=== PATIENT | female | born 1985 | race Caucasian/White ===

== ENCOUNTER 2017-05-12 09:44 | Emergency (ER) | payer SELFPAY ==
[~2017-05-12] VITALS: Ht 170.2 cm; Wt 85.9 kg
[~2017-05-12 09:44] MED LIST: CALNTAB PO; CLIN150C14 PO; PERI0.126 SWISH-SPIT
[2017-05-12 09:50] VITALS: BP 101/61; PULSE 83; RESP 16; TEMP 98.1
[2017-05-12] MEDS ORDERED: CLIN300C5 PO (10:18)
--- NOTE | 2017-05-12 10:18 | PD ---
HPI Chief Complaint: Bite or Sting Time Seen by Provider: 10:04 Travel History International Travel<30 days: No Contact w/Intl Traveler<30days: No Traveled to known affect area: No History of Present Illness HPI 31-year-old female here for evaluation of dog bite to the right index her prior to arrival. She reports the dog was startled by thunder causing it bite her in the hand. She reports normal sensation and full range of motion of the finger. She has 2 lacerations/puncture wounds to the digit. She reports pain within the finger which is nonradiating and constant. No alleviating factors. [facility] Past Medical History Medical History: Denies Significant Hx Influenza Vaccination: Yes ?: Not LMP: 05/07/17 Social History Alcohol Use: No Tobacco Use: Yes (1 PPD) Substance Use: No Allergies-Medications (Allergen,Severity, Reaction): Coded Allergies: amoxicillin (Unverified Allergy, Severe, Seizures, 05/12/17) penicillin G (Unverified Allergy, Severe, swelling of throat, 05/12/17) Reported Meds & Prescriptions Reported Meds & Active Scripts Active Peridex Liq (Chlorhexidine Gluconate (Mouth) Liq) 0.12% Soln 15 Ml SWISH-SPIT BID Clindamycin (Clindamycin HCl) 150 Mg Cap 300 Mg PO Q8HR 10 Days Review of Systems Except as stated in HPI: all other systems reviewed are Neg Physical Exam Narrative GENERAL: Well-nourished, well-developed patient. SKIN: Focused skin assessment warm/dry. 2 lacerations to right index finger volar aspect. Wound #1 measures 0.5 cm. Wound #2 measures 0.75 CM. Neurovascular or tendon injury identified. Patient is able to fully flex and extend the digit against resistance. Brisk cap refill. Reported mild paresthesia but is able to differentiate sharp and all sensation. CARDIOVASCULAR: Regular rate and rhythm without murmurs, gallops, or rubs. RESPIRATORY: Breath sounds equal bilaterally. No accessory muscle use. GASTROINTESTINAL: Abdomen soft, non-tender, nondistended. MUSCULOSKELETAL: No cyanosis, or edema. Right index finger:2 lacerations to right index finger volar aspect. Wound #1 measures 0.5 cm. Wound #2 measures 0.75 CM. Neurovascular or tendon injury identified. Patient is able to fully flex and extend the digit against resistance. Brisk cap refill. Reported mild paresthesia but is able to differentiate sharp and all sensation. Data Data Last Documented VS Vital Signs Date Time Temp Pulse Resp B/P (MAP) Pulse Ox O2 Delivery O2 Flow Rate FiO2 05/12/17 09:50 98.1 83 16 101/61 (74) [facility] Medical Decision Making Medical Screen Exam Complete: Yes Emergency Medical Condition: Yes Differential Diagnosis Puncture wound, animal bite, laceration to finger Narrative Course 31-year-old female here with 2 puncture wounds/lacerations to the right index finger caused by dogbite prior to arrival. Extremities neurovascular intact. Both wounds are under 1 cm. Neurovascular or tendon injury identified. The wounds were extensively irrigated. Sterile dressings and splint applied. Patient on antibiotics and instructed to follow-up in 2 days for recheck. Patient verbalizes understanding and agrees to plan Diagnosis Primary Impression: Dog bite of finger Qualified Codes: S61.259A - Open bite of unspecified finger without damage to nail, initial encounter; W54.0XXA - Bitten by dog, initial encounter Referrals: Primary Care Physician Additional Instructions: Cleansed the area daily with soap and water. Apply a clean dry dressing to the area daily. Do not submerge the wound in water. Where the splint for one week. Take the antibiotics as prescribed. Follow-up in 2 days for recheck. Take [id number] Tylenol or Motrin as needed for pain. Return if he developed new or worsening symptoms or signs of infection Scripts Clindamycin (Clindamycin) 300 Mg Cap 300 MG PO Q6H for Infection for 10 Days, #40 CAP 0 Refills Prov: Rosie Hennessy 05/12/17 Disposition: 01 DISCHARGE HOME Condition: Stable Rosie Hennessy May 12, 2017 10:18
[2017-05-12] MEDS ORDERED: CLINDAMYCIN 150 MG CAP PO ONE (10:30)
== END 2017-05-12 10:47 | disposition home or self-care (01) ==
LOC: PHEFT 09:44
DX: S61.250A Open bite of right index finger without damage to nail, initial encounter (principal); W54.0XXA Bitten by dog, initial encounter
CPT/HCPCS: 99283

== ENCOUNTER 2017-09-19 13:24 | Emergency (ER) | payer MEDICAID ==
[~2017-09-19] VITALS: Ht 170.2 cm; Wt 86.4 kg
[~2017-09-19 13:24] MED LIST changes: -CALNTAB PO; -CLIN150C14 PO; +CLIN300C5 PO; -PERI0.126 SWISH-SPIT
[2017-09-19 13:31] VITALS: BP 127/79; PULSE 77; RESP 16; TEMP 98.1; O2SAT 98
--- NOTE | 2017-09-19 15:27 | RADRPT ---
EXAM DATE/TIME: 09/19/2017 14:54 [facility] COMPARISON: No previous studies available for comparison. INDICATIONS : Right ankle pain post fall MEDICAL HISTORY : None. SURGICAL HISTORY : None. ENCOUNTER: Initial ACUITY: 2 days PAIN SCORE: 9/10 LOCATION: Right lateral ankle FINDINGS: Three view exam was performed of the right ankle. The bony structures are in normal alignment. No e vidence of fracture, dislocation, or periosteal reaction. The ankle mortise is intact. There is min imal soft tissue thickening about the lateral aspect of the ankle. No radiopaque foreign bodies are seen. Bony mineralization is normal. CONCLUSION: Mild lateral soft tissue swelling. No evidence of fracture or dislocation. Austin Hughes MD on September 19, 2017 at 15:24 Board Certified Radiologist. This report was verified electronically.
--- NOTE | 2017-09-19 15:31 | RADRPT ---
EXAM DATE/TIME: 09/19/2017 14:54 [facility] COMPARISON: No previous studies available for comparison. INDICATIONS : Right foot pain post fall MEDICAL HISTORY : None. SURGICAL HISTORY : None. ENCOUNTER: Initial ACUITY: 2 days PAIN SCORE: 9/10 LOCATION: Right lateral foot FINDINGS: Two view examination of the right foot demonstrates no soft tissue swelling, dislocation, or fracture . The calcaneus is intact. Bony mineralization is normal. CONCLUSION: 1. No acute bony fracture of the right foot identified. Johnny Santos MD on September 19, 2017 at 15:24 Board Certified Radiologist. This report was verified electronically.
[2017-09-19] MEDS ORDERED: NAPR500 PO (15:43)
--- NOTE | 2017-09-19 15:44 | PD ---
HPI Chief Complaint: Injury Time Seen by Provider: 14:22 Travel History International Travel<30 days: No Contact w/Intl Traveler<30days: No Traveled to known affect area: No History of Present Illness HPI This is a 31-year-old female here with right foot and ankle pain after twisting injury yesterday. She reports she has pain with weightbearing and range of motion. Slightly relieved with rest. Denies paresthesia or weakness of the extremity. No other injuries. Symptom severity is moderate. PFSH Past Medical History Medical History: Denies Significant Hx ?: Not Social History Alcohol Use: No Tobacco Use: Yes (1 PPD) Substance Use: No Allergies-Medications (Allergen,Severity, Reaction): Coded Allergies: amoxicillin (Unverified Allergy, Severe, Seizures, 09/19/17) penicillin G (Unverified Allergy, Severe, swelling of throat, 09/19/17) Reported Meds & Prescriptions Reported Meds & Active Scripts Active No Active Prescriptions or Reported Medications Review of Systems Except as stated in HPI: all other systems reviewed are Neg General / Constitutional: No: Fever Eyes: No: Visual changes HENT: No: Headaches Cardiovascular: No: Chest Pain or Discomfort Respiratory: No: Shortness of Breath Physical Exam Narrative GENERAL: Alert and well-appearing 31-year-old female SKIN: Warm and dry. HEAD: Normocephalic. EYES: No injection or drainage. NECK: Supple CARDIOVASCULAR: Regular rate and rhythm RESPIRATORY: Breath sounds equal bilaterally. No accessory muscle use. GASTROINTESTINAL: Abdomen soft, non-tender, nondistended. MUSCULOSKELETAL: No cyanosis. Right lower extremity: Notable swelling and tenderness over the lateral malleolus and dorsal aspect of the foot. 2+ DP pulse. Ankle joint is stable. Normal sensation. Brisk cap refill. Data Data Last Documented VS Vital Signs Date Time Temp Pulse Resp B/P (MAP) Pulse Ox O2 Delivery O2 Flow Rate FiO2 09/19/17 13:31 98.1 77 16 127/79 (95) 98 Orders Orders Ankle, Complete (Net7qpm) (09/19/17 ) Foot, Limited (2vws) (09/19/17 ) MDM Medical Decision Making Medical Screen Exam Complete: Yes Emergency Medical Condition: Yes Differential Diagnosis Ankle fracture, metatarsal fracture, ankle sprain, contusion Narrative Course This is a 31-year-old female with ankle sprain. X-rays negative for fracture. The extremity is neurovascularly intact. Bhargav wrap and crutches will be provided. Diagnosis Primary Impression: Ankle sprain Qualified Codes: S93.401A - Sprain of unspecified ligament of right ankle, initial encounter Referrals: Primary Care Physician Additional Instructions: Ice and elevate the extremity. Bhargav wrap and crutches for weightbearing. Medication as directed. Follow-up with her primary doctor. Scripts Naproxen (Naprosyn) 500 Mg Tab 500 MG PO BID, #30 TAB 0 Refills Prov: Rosie Hennessy 09/19/17 Disposition: 01 DISCHARGE HOME Condition: Stable Rosie Hennessy Sep 19, 2017 15:44
== END 2017-09-19 16:08 | disposition home or self-care (01) ==
LOC: PHEFT 13:24
DX: S93.401A Sprain of unspecified ligament of right ankle, initial encounter (principal); X50.1XXA Overexertion from prolonged static or awkward postures, initial encounter; F17.200 Nicotine dependence, unspecified, uncomplicated
CPT/HCPCS: 73610; 73620; 99283; E0113; L1906